=== PATIENT | female | born 1985 | race Caucasian/White ===

== ENCOUNTER 2020-08-04 20:33 | Outpatient (REF) | payer OTHER, SELFPAY ==
[2020-08-07 15:22] LABS: Patient Race White; SARS-CoV-2 RNA Undetected (Undetected); SARS-CoV-2 Specimen Source Nasopharynx
== END 2020-08-04 20:53 ==
LOC: NCHCN 20:33
PROVIDERS: PCP Nurse Practitioner Family; Visit Provider Nurse Practitioner Family
DX: J34.89 Other specified disorders of nose and nasal sinuses (principal)
CPT/HCPCS: U0003

== ENCOUNTER 2020-09-26 16:12 | Outpatient (REF) | payer OTHER, SELFPAY ==
--- NOTE | 2020-09-26 14:40 | PAPFT_PTH ---
PATIENT: Jen Shrestha LOC: [facility] U#:[id number] AGE/SX: 35/F ROOM: RE09/26/[address]: Mihir Barksdale RN : 1985 BED: DIS: 09/26/2020 SPEC #: [id number] RECD: 09/26/20 18:10 STATUS: [place] REQ #: [id number] VIVEK: 09/26/20 14:[address]: Mihir Barksdale DEPT: [facility] Cytology RECD BY: Riri Garcia ENTERED: 09/26/20 18:10 SP TYPE: PAPFT OTHR DR: Peyton Crowe Tissues: 1 - CX/ENDOCX FOR PAP SMEARS Procedures: PAP THIN PREP/[facility] Screening HPV DNA PROBE Comments: [id number]
[2020-09-29 15:47] LABS: Chlamydia Result Negative (Negative); GC Result Negative (Negative)
== END 2020-09-26 16:32 ==
LOC: LBN 16:12
PROVIDERS: PCP Nurse Practitioner Family; Visit Provider Advanced Practice Midwife
DX: N93.0 Postcoital and contact bleeding (principal); Z11.3 Encounter for screening for infections with a predominantly sexual mode of transmission; Z12.4 Encounter for screening for malignant neoplasm of cervix
CPT/HCPCS: 87491; 87591; 88142; 87480; 87510; 87624; 87660

== ENCOUNTER 2021-10-12 16:32 | Outpatient (REF) | payer OTHER, SELFPAY ==
[2021-10-14 11:37] LABS: COVID-19 RT-PCR UVMMC Result Negative (Negative)
== END 2021-10-12 16:33 | disposition home or self-care (01) ==
LOC: NCHCN 16:32
PROVIDERS: PCP Nurse Practitioner Family; Visit Provider Nurse Practitioner Family
DX: Z20.822 Contact with and (suspected) exposure to COVID-19 (principal)
CPT/HCPCS: U0003

== ENCOUNTER 2023-05-26 14:53 | Outpatient (CLI) | payer OTHER, SELFPAY ==
--- NOTE | 2023-05-26 14:30 | DI.RAD_ITS ---
Exam(s) XR FINGER LT LITTLE EXAM: XR FINGER LT LITTLE CLINICAL HISTORY: left little finger pain. TECHNIQUE: 2D digital imaging was performed. Three views. COMPARISON: None. FINDINGS: BONES: Fracture seen on lateral view with the volar base of the middle phalanx, nondisplaced. No sig nificant separation at the articular surface. No bony destructive lesion is seen. JOINTS: No dislocation present. SOFT TISSUE: Swelling around PIP joint. IMPRESSION: Nondisplaced fracture at the volar base of the middle phalanx. DATA REPOSITORY: RADIATION DOSE DELIVERED:
== END 2023-05-26 14:54 | disposition home or self-care (01) ==
LOC: DIORS 14:54
PROVIDERS: PCP Nurse Practitioner Family; Referring Provider Nurse Practitioner Family; Visit Provider Physician Assistant
DX: S62.650A Nondisplaced fracture of middle phalanx of right index finger, initial encounter for closed fracture (principal); X58.XXXA Exposure to other specified factors, initial encounter
CPT/HCPCS: 73140

== ENCOUNTER 2025-01-10 16:19 | Outpatient (REF) | payer OTHER, SELFPAY ==
--- NOTE | 2025-01-10 16:10 | PAPFT_PTH ---
PATIENT: Jen Shrestha LOC: [facility] U#:[id number] AGE/SX: 39/F ROOM: RE01/10/[address]: Dominique Bradley DO : 1985 BED: DIS: 01/10/2025 SPEC #: [id number] RECD: 01/10/25 18:09 STATUS: MAXIMILIANOMehran REQ #: [id number] VIVEK: 01/10/25 16:[address]: Dominique Bradley DEPT: [facility] Cytology RECD BY: Riri Garcia ENTERED: 01/10/25 18:09 SP TYPE: PAPFT OTHR DR: Peyton Crowe Tissues: 1 - CX/ENDOCX FOR PAP SMEARS Procedures: PAP THIN PREP/[facility] Screening HPV DNA PROBE Comments: [id number] (HPV 16 & 18/45)
== END 2025-01-10 16:20 | disposition home or self-care (01) ==
LOC: LBN 16:19
PROVIDERS: PCP Nurse Practitioner Family; Visit Provider Obstetrics & Gynecology
DX: Z12.4 Encounter for screening for malignant neoplasm of cervix (principal); Z01.419 Encounter for gynecological examination (general) (routine) without abnormal findings
CPT/HCPCS: 88142; 87624

== ENCOUNTER 2025-04-04 14:56 | Outpatient (CLI) | payer OTHER, SELFPAY ==
--- NOTE | 2025-04-04 14:30 | DI.RAD_ITS ---
Exam(s) XR HIP RT COMPLETE AP PELVIS EXAM: XR HIP RT COMPLETE AP PELVIS CLINICAL HISTORY: R Hip pain. TECHNIQUE: 2D digital imaging was performed of the right hip. Two images were obtained. AP pelvis and lateral right hip views were obtained. COMPARISON: No exams were available for comparison FINDINGS: BONES: No acute fracture is present. No bony destructive lesion is seen. JOINTS: No dislocation present. SOFT TISSUE: Normal. IMPRESSION: Unremarkable radiographs of the right hip. DATA REPOSITORY: RADIATION DOSE DELIVERED:
== END 2025-04-04 14:57 | disposition home or self-care (01) ==
LOC: DIORS 14:57
PROVIDERS: PCP Nurse Practitioner Family; Referring Provider Nurse Practitioner Family; Visit Provider Physician Assistant
DX: M25.551 Pain in right hip (principal); M25.859 Other specified joint disorders, unspecified hip
CPT/HCPCS: 73502

== ENCOUNTER 2025-06-14 19:24 | Outpatient (REF) | payer OTHER, SELFPAY ==
[2025-06-14 20:06] LABS: Hemoglobin A1C 4.9 % (<5.7)
[2025-06-14 20:12] LABS: Calculated LDL 87 mg/dL (<100); Cholesterol 167 mg/dL (<200); HDL Cholesterol 69 mg/dL (>or=50); Triglyceride 57 mg/dL (<150)
== END 2025-06-14 19:25 | disposition home or self-care (01) ==
LOC: NCHCN 19:24
PROVIDERS: PCP Nurse Practitioner Family; Visit Provider Family Medicine
DX: Z86.32 Personal history of gestational diabetes (principal); Z82.49 Family history of ischemic heart disease and other diseases of the circulatory system
CPT/HCPCS: 80061; 83036